=== PATIENT | female | born 1985 | race Caucasian/White ===

== ENCOUNTER 2016-12-19 13:25 | Emergency (ER) | payer SELFPAY ==
[2016-12-19 13:34] VITALS: TEMP 98.4
[2016-12-19] MEDS ORDERED: FAMOTIDINE 20 MG/2 ML SDV ONE (13:35)
[2016-12-19] MEDS ORDERED: methylPREDNISolone SOD SUCC 125 MG/2 ML VIAL ONE (13:35)
[2016-12-19] MEDS ORDERED: NS 1,000 ML IV ONE (13:39)
[2016-12-19] MEDS ORDERED: methylPREDNISolone SOD SUCC 125 MG/2 ML VIAL IVP ONE (13:39)
[2016-12-19] MEDS ORDERED: RANITIDINE 50 MG/2 ML VIAL IVP ONE (13:39)
--- NOTE | 2016-12-19 13:40 | EDPHY ---
H & P Time Seen by Provider: 12/19/16 13:33 HPI/ROS: CHIEF COMPLAINT: Allergic reaction. HISTORY OF PRESENT ILLNESS: The patient is a 31 year old female with a known nut allergy, presenting with a possible allergic reaction. The patient ate a donut 1 hour ago. About 30 minutes ago she developed chest tightness, itchy throat, and stomach cramping. She has had allergic reactions in the past and states epinephrine does not improve her symptoms, it makes her feel shaky but does not improve the reaction. The patient has a history of endometriosis and states her abdominal pain feels different. She denies vomiting or diarrhea. REVIEW OF SYSTEMS: A comprehensive 10 point review of systems is otherwise negative aside from elements mentioned in the history of present illness. Past Medical/Surgical History: Endometriosis, Chronic pain, [place] Saleem. Social History: Single. Lives in [place]. Smoking Status: Never smoked Physical Exam: General Appearance: Very anxious, tachypneic Eyes: Pupils equal and round, no periorbital swelling ENT, Mouth: Mucous membranes moist, no oral swelling Neck: Normal inspection, no stridor Respiratory: Lungs are clear to auscultation, no wheezing Cardiovascular: Regular tachycardia Gastrointestinal: Abdomen is diffusely tender, unable to obtain a good abdominal exam Neurological: A&O, nonfocal, normal gait Skin: Generalized hives Extremities: No swelling Psychiatric: Mood and affect normal Constitutional: Initial Vital Signs Temperature (C) 36.9 C 12/19/16 13:32 Heart Rate 101 H 12/19/16 13:32 Respiratory Rate 22 H 12/19/16 13:32 Blood Pressure 122/90 H 12/19/16 13:32 O2 Sat (%) 95 12/19/16 13:32 O2 Delivery Mode Room Air Allergies/Adverse Reactions: morphine Allergy (Intermediate, Verified 04/28/16 18:30) Other-Enter Comments ALL NUTS Allergy (Severe, Uncoded 04/28/16 18:30) Anaphylaxis Home Medications: Medication Instructions Recorded epINEPHrine 12/19/16 predniSONE 40 mg PO DAILY #4 tab 12/19/16 Medical Decision Making ED Course/Re-evaluation: I examined the patient. Due to chest tightness and itchy throat patient received 0.3mg Epinephrine IM. IV was established, the patient received 50mg Benadryl, 125mg Prednisone, 50mg Zantac, and 1L normal saline. 1400: The patient continues to complain of abdominal pain. She is tachypneic and tachycardic. 1mg Ativan was ordered. 1410: I reevaluated the patient after she received 1mg Ativan. She continues to complain of abdominal cramping. Plan for another 1mg Ativan. 1430: I reevaluated the patient. She continues to have abdominal pain and chest tightness. She complains of difficulty breathing. On repeat exam, patient is tachycardic. Lungs are clear, O2 saturation is 100. Plan to try DuoNeb. 1510: I reevaluated the patient after she received DuoNeb. She is calm. She continues to complain of abdominal cramping. I will give her 30mg IV Toradol. 1555: I reevaluated the patient. She is feeling better, continues to have some abdominal cramping.Abd exam is benign. Plan to discharge home. Clear fluids for 24 hours. Abd pain precautions given. Return if worse. Differential Diagnosis: Differential diagnosis includes though it is not limited to laryngeal edema, bronchospasm, hypotension, angioedema. - Data Points Medications Given: Discontinued Medications Albuterol/Ipratropium (Duoneb) 3 ml IH EDNOW ONE Stop: 12/19/16 14:39 Last Admin: 12/19/16 14:49 Dose: 3 ml Albuterol/Ipratropium (Duoneb) 3 ml IH EDNOW ONE Stop: 12/19/16 14:43 Last Admin: 12/19/16 14:45 Dose: Not Given Diphenhydramine HCl (Benadryl Injection) 50 mg IVP EDNOW ONE Stop: 12/19/16 13:40 Last Admin: 12/19/16 14:00 Dose: 50 mg Epinephrine HCl (Epinephrine) 0.3 mg IM EDNOW ONE Stop: 12/19/16 13:40 Last Admin: 12/19/16 14:00 Dose: 0.3 mg Sodium Chloride (Ns) 1,000 mls @ 0 mls/hr IV ONCE ONE PRN Reason: Wide Open Stop: 12/19/16 13:40 Last Admin: 12/19/16 14:00 Dose: 1,000 mls Ketorolac Tromethamine (Toradol) 30 mg IVP EDNOW ONE Stop: 03/22/17 15:11 Last Admin: 12/19/16 15:18 Dose: 30 mg Lorazepam (Ativan Injection) 1 mg IVP EDNOW ONE Stop: 12/19/16 14:34 Last Admin: 12/19/16 14:00 Dose: 1 mg Lorazepam (Ativan Injection) 1 mg IVP EDNOW ONE Stop: 12/19/16 14:34 Last Admin: 12/19/16 14:25 Dose: 1 mg Methylprednisolone Sodium Succinate (Solu-Medrol) 125 mg IVP EDNOW ONE Stop: 12/19/16 13:40 Last Admin: 12/19/16 14:00 Dose: 125 mg Ranitidine HCl (Zantac) 50 mg IVP EDNOW ONE Stop: 12/19/16 13:40 Last Admin: 12/19/16 14:00 Dose: 20 mg Departure - Departure Disposition: Home, Routine, Self-Care Clinical Impression: Anxiety Allergic reaction Qualifiers: Encounter type: initial encounter Qualified Code(s): T78.40XA - Allergy, unspecified, initial encounter Condition: Good Instructions: Anxiety (ED), General Allergic Reaction (ED) Additional Instructions: Clear liquids for the next 24 hours. Gradual diet advancement as tolerated. Take Benadryl 3 times a day for the next 2 days. Take Prednisone as prescribed. Followup with your primary care physician as needed. Referrals: ILEANA WYATT [Primary Care Provider] - As per Instructions Prescriptions: predniSONE 40 mg PO DAILY #4 tab Report Scribed for: Loretta Garcia Report Scribed by: Ana Murdock Date of Report: 12/19/16 Time of Report: 13:41 Physician Review and Approval Statement: 12/19/16 13:41 Portions of this note were transcribed by a medical insurance claims specialist. I personally performed the history, physical exam, and medical decision-making; and confirmed the accuracy of the information in the transcribed note.
[2016-12-19] MEDS ORDERED: LORazepam 2 MG/ML INJ ONE ×2 (13:50→14:12)
[2016-12-19] MEDS ORDERED: LORazepam 2 MG/ML INJ IVP ONE ×2 (14:33)
[2016-12-19] MEDS ORDERED: IPRATROPIUM/ALBUTEROL 3 ML DEYVIAL IH ONE ×2 (14:38→14:42)
[2016-12-19 14:51] VITALS: RESP 18
[2016-12-19] MEDS ORDERED: KETOROLAC 30 MG/1 ML SDV IVP ONE (15:10)
[2016-12-19 16:35] VITALS: BP 122/64; PULSE 110; O2SAT 98
== END 2016-12-19 16:32 | disposition home or self-care (01) ==
DX: T78.40XA Allergy, unspecified, initial encounter (principal); F41.9 Anxiety disorder, unspecified
CPT/HCPCS: 96374; J0171; J1200; J1885; J2060

== ENCOUNTER 2017-01-02 09:46 | Emergency (ER) | payer OTHER ==
[2017-01-02 09:56] VITALS: TEMP 97.9
--- NOTE | 2017-01-02 10:07 | CPEKG ---
Heart Rate: 96 RR Interval: 625 P-R Interval: 132 QRSD Interval: 80 QT Interval: 340 QTC Interval: 430 P [place]: 79 QRS [place]: 82 T Wave [place]: 20 EKG Severity - NORMAL ECG - EKG Impression: SINUS RHYTHM Electronically Signed By: Parveen Alfredo 02-Jan-2017 11:01:25
[2017-01-02 10:23] LABS: % IMMATURE GRANULYOCYTES 0.4 % (0.0-1.1); ABSOLUTE IMMATURE GRANULOCYTES 0.02 10^3/uL (0.00-0.10); ADD DIFF? NO; ADD MORPH? NO; ADD SCAN? NO; ATYPICAL LYMPHOCYTE FLAG 20 (0-99); FRAGMENT RBC FLAG 0 (0-99); HEMATOCRIT 40.4 % (38.0-47.0); HEMOGLOBIN 14.1 g/dL (12.6-16.3); LEFT SHIFT FLG 0 (0-99); LIPEMIA HEMOLYSIS FLAG 90 (0-99); MEAN CELL HEMOGLOBIN 30.6 pg (27.9-34.1); MEAN CELL HEMOGLOBIN CONCENTR. 34.9 g/dL (32.4-36.7); MEAN CELL VOLUME 87.6 fL (81.5-99.8); MEAN PLATELET VOLUME 9.1 fL (8.7-11.7); PLATELET CLUMPS FLAG 0 (0-99); PLATELET COUNT 189 10^3/uL (150-400); RED BLOOD CELL COUNT 4.61 10^6/uL (4.18-5.33)
[2017-01-02] MEDS ORDERED: LORazepam 2 MG/ML INJ IVP ONE (10:26)
[2017-01-02] MEDS ORDERED: KETOROLAC 30 MG/1 ML SDV IVP ONE (10:26)
--- NOTE | 2017-01-02 10:30 | EDPHY ---
H & P Smoking Status: Never smoked Time Seen by Provider: 01/02/17 09:58 HPI/ROS: CHIEF COMPLAINT: Left-sided chest pain HISTORY OF PRESENT ILLNESS: 31-year-old female presents to the emergency department by private vehicle complaining of severe pain in left side of her chest that began at 845 this morning. The patient states that was warmth abrupt in onset. Denies any known trauma or injury. She does not feel short of breath however when she takes a big breath she does have pain. She denies neck pain. Denies abdominal pain. She has had a hysterectomy in the past and denies . She denies calf pain or swelling. She does feel tingling in her left lower leg. She has never had this pain in the past. No treatment at home. REVIEW OF SYSTEMS: Constitutional: No fever, no chills. Eyes: No double or blurry vision. ENT: No sore throat. Respiratory: No cough, no shortness of breath. Cardiac: Left-sided chest pain as above Gastrointestinal: No abdominal pain, vomiting or diarrhea. Genitourinary: No dysuria. Musculoskeletal: No neck or back pain. Skin: No rashes. Neurological: No headache. (Gwen Wong) Past Medical/Surgical History: Endometriosis, partial hysterectomy (Marvin,Gwen M) Social History: Single and lives in [place] (Marvin,Gwen M) Physical Exam: General Appearance: Alert. 98% on room air, very anxious, tearful, blood pressure 113/79, heart rate 92 Eyes: Pupils equal and round. Extraocular motions are all intact. ENT: Mouth: Mucous membranes moist. Respiratory: No wheezing, rhonchi, or rales, lungs are clear to auscultation. The patient has reproducible pain with palpation to the left anterior aspect of her chest just above the left breast. No palpable crepitus or other bony abnormality. Cardiovascular: Regular rate and rhythm. Gastrointestinal: Abdomen is soft and nontender, no masses, no rebound or guarding, bowel sounds normal. Neurological: Alert and oriented x 3, cranial nerves II through XII grossly intact Skin: Warm and dry, no rashes. Musculoskeletal: Nontender to palpate along the cervical, thoracic or lumbar spine. Neck is supple. Extremities: Full range of motion and no peripheral edema. Psychiatric: Patient is oriented X 3, there is no agitation. (Gwen Wong) Constitutional: Initial Vital Signs Temperature (C) 36.6 C 01/02/17 09:52 Heart Rate 92 01/02/17 09:52 Respiratory Rate 28 H 01/02/17 09:52 Blood Pressure 113/79 01/02/17 09:52 O2 Sat (%) 98 01/02/17 09:52 O2 Delivery Mode Room Air Allergies/Adverse Reactions: morphine Allergy (Intermediate, Verified 01/02/17 09:51) Other-Enter Comments ALL NUTS Allergy (Severe, Uncoded 04/28/16 18:30) Anaphylaxis Home Medications: Medication Instructions Recorded Hydrocodone/APAP 5/325 [[place] 1 each PO Q4-6PRN PRN #11 tab 01/02/17 5/325 (*)] Prozac 10 MG (*) 01/02/17 Medical Decision Making - Diagnostics Imaging: Imaging Impressions Chest X-Ray 01/02/17 10:26 Impression: No acute pulmonary disease. Imaging Impressions Chest X-Ray 01/02/17 10:26 Impression: No acute pulmonary disease. Chest x-ray was reviewed by myself and revealed no acute pulmonary disease. This is reviewed by myself the PAC system as well as by the radiologist. (Gwen Wong) ED Course/Re-evaluation: Patient has reproducible pain with palpation to the left anterior aspect of the chest. No palpable crepitus or other abnormality noted. The patient will be given Toradol 30 mg IV and was also given 0.5 mg of IV Ativan since she is extremely anxious and tearful. D-dimer has been ordered. I doubt pulmonary embolism. Again she has reproducible pain with palpation. Laboratory studies are pending. EKG is within normal limits. Patient required IV Dilaudid for pain as well. The patient felt comfortable being discharged home. I did discuss the pros and cons of CT imaging of her chest including radiation exposure and the patient agrees with not obtain CT scan. The patient feels comfortable being discharged home. She will be discharged home with Ros[place]. She was encouraged to continue ibuprofen for pain. Also encouraged to return if she feels short of breath, if she develops a fever, increasing pain or any other concerns. (Gwen Wong) Differential Diagnosis: Chest pain including but not limited to myocardial ischemia, pulmonary embolus, chest wall pain, pleural inflammation and pulmonary infectious causes. (Gwen Wong) - Data Points Laboratory Results: Laboratory Results 01/02/17 10:10 01/02/17 10:10 01/02/17 01/02/17 01/02/17 10:10 10:10 10:10 WBC RBC Hgb Hct MCV MCH MCHC RDW Plt Count MPV Neut % (Auto) Lymph % (Auto) [place] % (Auto) Eos % (Auto) Baso % (Auto) Nucleat RBC Rel Count Absolute Neuts (auto) Absolute Lymphs (auto) Absolute Monos (auto) Absolute Eos (auto) Absolute Basos (auto) Absolute Nucleated RBC Immature Gran % Immature Gran # D-Dimer 0.33 ug/mLFEU ug/mLFEU (0.00-0.50) Sodium 141 mEq/L mEq/L (134-144) Potassium 3.8 mEq/L mEq/L (3.5-5.2) Chloride 107 mEq/L mEq/L (97-110) Carbon Dioxide 21 mEq/l L mEq/l (22-31) Anion Gap 13 mEq/L mEq/L (8-16) BUN 11 mg/dL mg/dL (7-23) Creatinine 0.8 mg/dL mg/dL (0.6-1.0) Estimated GFR > 60 Glucose 89 mg/dL mg/dL (70-100) Calcium 9.4 mg/dL mg/dL (8.5-10.4) Beta HCG, Qual NEGATIVE 01/02/17 10:10 WBC 5.18 10^3/uL 10^3/uL (3.80-9.50) RBC 4.61 10^6/uL 10^6/uL (4.18-5.33) Hgb 14.1 g/dL g/dL (12.6-16.3) Hct 40.4 % % (38.0-47.0) MCV 87.6 fL fL (81.5-99.8) MCH 30.6 pg pg (27.9-34.1) MCHC 34.9 g/dL g/dL (32.4-36.7) RDW 12.0 % % (11.5-15.2) Plt Count 189 10^3/uL 10^3/uL (150-400) MPV 9.1 fL fL (8.7-11.7) Neut % (Auto) 69.7 % % (39.3-74.2) Lymph % (Auto) 21.0 % % (15.0-45.0) [place] % (Auto) 7.3 % % (4.5-13.0) Eos % (Auto) 1.0 % % (0.6-7.6) Baso % (Auto) 0.6 % % (0.3-1.7) Nucleat RBC Rel Count 0.0 % % (0.0-0.2) Absolute Neuts (auto) 3.61 10^3/uL 10^3/uL (1.70-6.50) Absolute Lymphs (auto) 1.09 10^3/uL 10^3/uL (1.00-3.00) Absolute Monos (auto) 0.38 10^3/uL 10^3/uL (0.30-0.80) Absolute Eos (auto) 0.05 10^3/uL 10^3/uL (0.03-0.40) Absolute Basos (auto) 0.03 10^3/uL 10^3/uL (0.02-0.10) Absolute Nucleated RBC 0.00 10^3/uL 10^3/uL (0-0.01) Immature Gran % 0.4 % % (0.0-1.1) Immature Gran # 0.02 10^3/uL 10^3/uL (0.00-0.10) D-Dimer Sodium Potassium Chloride Carbon Dioxide Anion Gap BUN Creatinine Estimated GFR Glucose Calcium Beta HCG, Qual Medications Given: Discontinued Medications Hydromorphone HCl (Dilaudid) 0.5 mg IVP EDNOW ONE Stop: 01/02/17 12:31 Last Admin: 01/02/17 12:52 Dose: 0.5 mg Hydromorphone HCl (Dilaudid) 0.5 mg IVP EDNOW ONE Stop: 01/02/17 13:13 Last Admin: 01/02/17 13:00 Dose: 0.5 mg Sodium Chloride (Ns) 1,000 mls @ 0 mls/hr IV ONCE ONE PRN Reason: Wide Open Stop: 01/02/17 12:54 Last Admin: 01/02/17 12:53 Dose: 1,000 mls Ketorolac Tromethamine (Toradol) 30 mg IVP EDNOW ONE Stop: 01/02/17 10:27 Last Admin: 01/02/17 10:44 Dose: 30 mg Lorazepam (Ativan Injection) 0.5 mg IVP EDNOW ONE Stop: 01/02/17 10:27 Last Admin: 01/02/17 10:45 Dose: 0.5 mg Departure - Departure Disposition: Home, Routine, Self-Care Clinical Impression: Chest wall pain Condition: Good Instructions: Chest Wall Pain (ED) Additional Instructions: Ibuprofen 400-600mg every 8 hours for pain as directed. Hydrocodone for severe pain as directed. Return if you feel shortness of breath, fever, increasing pain, or if you feel worse in any way. Referrals: ILEANA WYATT [Primary Care Provider] - 2-3 days without fail Prescriptions: Hydrocodone/APAP 5/325 [[place] 5/325 (*)] 1 each PO Q4-6PRN PRN #11 tab PRN Reason: Pain, Severe
[2017-01-02 10:48] LABS: ANION GAP 13 mEq/L (8-16); CALCIUM 9.4 mg/dL (8.5-10.4); CARBON DIOXIDE 21 mEq/l (22-31); CHLORIDE 107 mEq/L (97-110); CREATININE 0.8 mg/dL (0.6-1.0); GLOMERULAR FILTRATION RATE > 60; GLUCOSE 89 mg/dL (70-100); POTASSIUM 3.8 mEq/L (3.5-5.2); SODIUM 141 mEq/L (134-144)
[2017-01-02] MEDS ORDERED: HYDROmorphONE/DILAUDID 1 MG/ML SYR IVP ONE ×2 (12:30→13:12)
[2017-01-02] MEDS ORDERED: NS 1,000 ML IV ONE (12:53)
[2017-01-02 14:16] VITALS: BP 112/72; PULSE 88; RESP 16; O2SAT 96
== END 2017-01-02 14:15 | disposition home or self-care (01) ==
DX: R07.89 Other chest pain (principal)
CPT/HCPCS: 96374; J1170; J1885; J2060

== ENCOUNTER 2017-01-12 16:42 | Emergency (ER) | payer OTHER ==
--- NOTE | 2017-01-12 17:07 | CPEKG ---
Heart Rate: 84 RR Interval: 714 P-R Interval: 148 QRSD Interval: 78 QT Interval: 360 QTC Interval: 426 P [place]: 70 QRS [place]: 76 T Wave [place]: 18 EKG Severity - NORMAL ECG - EKG Impression: SINUS RHYTHM Electronically Signed By: Alberto Pitt 12-Jan-2017 17:19:02
[2017-01-12 17:08] LABS: % IMMATURE GRANULYOCYTES 0.2 % (0.0-1.1); ABSOLUTE IMMATURE GRANULOCYTES 0.01 10^3/uL (0.00-0.10); ADD DIFF? NO; ADD MORPH? NO; ADD SCAN? NO; ATYPICAL LYMPHOCYTE FLAG 30 (0-99); FRAGMENT RBC FLAG 0 (0-99); HEMATOCRIT 40.4 % (38.0-47.0); HEMOGLOBIN 13.9 g/dL (12.6-16.3); LEFT SHIFT FLG 0 (0-99); LIPEMIA HEMOLYSIS FLAG 90 (0-99); MEAN CELL HEMOGLOBIN 30.3 pg (27.9-34.1); MEAN CELL HEMOGLOBIN CONCENTR. 34.4 g/dL (32.4-36.7); MEAN CELL VOLUME 88.2 fL (81.5-99.8); MEAN PLATELET VOLUME 9.2 fL (8.7-11.7); PLATELET CLUMPS FLAG 20 (0-99); PLATELET COUNT 222 10^3/uL (150-400); RED BLOOD CELL COUNT 4.58 10^6/uL (4.18-5.33); RED CELL DISTRIBUTION WIDTH 11.9 % (11.5-15.2)
[2017-01-12 17:15] LABS: ANION GAP 8 mEq/L (8-16); CALCIUM 9.4 mg/dL (8.5-10.4); CARBON DIOXIDE 24 mEq/l (22-31); CHLORIDE 107 mEq/L (97-110); CREATININE 0.7 mg/dL (0.6-1.0); ETHANOL SERUM < 10 mg/dL (0-10); GLOMERULAR FILTRATION RATE > 60; GLUCOSE 95 mg/dL (70-100); POTASSIUM 3.9 mEq/L (3.5-5.2); SALICYLATE < 1.0 mg/dL (2.0-20.0); SODIUM 139 mEq/L (134-144)
--- NOTE | 2017-01-12 17:16 | EDPHY ---
H & P Smoking Status: Never smoked Time Seen by Provider: 01/12/17 16:50 HPI/ROS: CHIEF COMPLAINT: Anxiety, suicidal, Ativan overdose HISTORY OF PRESENT ILLNESS: 31-year-old woman has a history of anxiety and depression. She has been having worsening anxiety and increasing suicidal thoughts over the past couple of weeks. Today she was at work and had a severe anxiety attack. Usually she can be calmed down by her boyfriend but he was not returning her phone calls and she left work and took a total of 20 mg of Xanax starting around 4:00 p.m.. She asked a friend to bring her to the ER because she was feeling severe anxiety and suicidal. She says her plan is to overdose. REVIEW OF SYSTEMS: Eye: no change in vision ENT: no sore throat Cardiac: no chest pain or syncope Pulmonary: no cough or SOB Abdomen: no vomiting, diarrhea, abdominal pain Musculoskeletal: no back pain Skin: no rash Neuro: no headache Constitutional: no fever : no urinary symptoms A comprehensive 10 point review of systems is otherwise negative aside from elements mentioned in the history of present illness. PAST MEDICAL HISTORY: Hysterectomy for endometriosis, anxiety and depression. Social history: Denies alcohol or drugs today General Appearance: Alert and conversant, cooperative. Eyes: No scleral icterus. ENT, Mouth: Normal mucous membranes. Respiratory: Normal respiratory effort, breath sounds equal, lungs are clear to auscultation. Cardiovascular: Regular rate and rhythm. Gastrointestinal: Abdomen is soft and non tender. Neurological: Alert and oriented x3. Normally conversant. Face symmetric, normal movement and sensation in all extremities. Skin: No laceration or cuts. Musculoskeletal: No peripheral edema and no joint swelling. Psychiatric: Tearful, admits to suicidal ideation, not homicidal, not hallucinating. Emergency Department course/MDM: patient placed on a mental health hold by myself for severe anxiety and suicidal thoughts. On arrival appears gravely disabled and danger to self. The patient had a medical screening evaluation performed. There does not appear to be an acute emergent medical or surgical condition which would preclude psychiatric evaluation at this time. Mental health evaluation is requested. 2121: Patient is still alert and normally conversant. I do not think she is at high risk of significant morbidity from her Xanax ingestion at this time. Mental health evaluation is in progress. Signed out to Dr. Rocha at this time with psychiatric evaluation in progress. (Alberto Pitt) Constitutional: Initial Vital Signs Temperature (C) 36.4 C 01/12/17 16:45 Heart Rate 112 H 01/12/17 16:45 Respiratory Rate 18 01/12/17 16:45 Blood Pressure 112/85 H 01/12/17 16:45 O2 Sat (%) 93 01/12/17 16:45 O2 Delivery Mode Room Air Allergies/Adverse Reactions: morphine Allergy (Intermediate, Verified 01/12/17 16:50) Other-Enter Comments ALL NUTS Allergy (Severe, Uncoded 04/28/16 18:30) Anaphylaxis Home Medications: Medication Instructions Recorded Prozac 10 MG (*) 01/02/17 ALPRAZolam [Xanax 0.5 MG (*)] 0.5 mg PO TID 01/12/17 Medical Decision Making - Diagnostics EKG Interpretation: 12-lead EKG interpreted by me; official reading is in trace master. My interpretation is sinus rhythm at rate of 84. Normal intervals. (Alberto Pitt) Differential Diagnosis: Differential diagnosis considered for depression including functional and major depression, situational depression, medication side effect, drugs and alcohol abuse. (Alberto Pitt) [id number]: Patient signed over to Dr. Paulino at 7:00 a.m. shift change. Patient here bipolar, depression, on M1 hold benzodiazepine overdose. During her stay this evening she did require 10 mg IM Haldol for acute agitation. She has been sleeping resting comfortably. Otherwise no acute events. pending placement (Nikolay Rocha) Patient has been evaluated and accepted at [facility] [place]. Paperwork is filled out. Patient remained stable (Brad Paulino) - Data Points Laboratory Results: Laboratory Results 01/12/17 17:00 01/12/17 17:00 Medications Given: Discontinued Medications Diphenhydramine HCl (Benadryl) 25 mg PO EDNOW ONE Stop: 01/13/17 01:25 Last Admin: 01/13/17 01:31 Dose: 25 mg Haloperidol Lactate (Haldol Injection) 5 mg IM EDNOW ONE Stop: 01/13/17 01:35 Last Admin: 01/13/17 01:40 Dose: 5 mg Haloperidol Lactate (Haldol Injection) 5 mg IVP EDNOW ONE Stop: 01/13/17 02:00 Last Admin: 01/13/17 01:55 Dose: 5 mg Midazolam HCl (Versed) 2 mg IM ONCE ONE Stop: 01/13/17 02:00 Last Admin: 01/13/17 06:44 Dose: Not Given Ondansetron HCl (Zofran) 4 mg IVP EDNOW ONE Stop: 01/12/17 18:00 Last Admin: 01/12/17 18:03 Dose: 4 mg Departure - Departure Disposition: Other Psych, Not Nancy Clinical Impression: Severe major depression, xanax overdose Condition: Good Referrals: ILEANA WYATT [Primary Care Provider] - As per Instructions
[2017-01-12] MEDS ORDERED: ONDANSETRON 4 MG/2 ML VIAL IVP ONE (17:59)
[2017-01-12] MEDS ORDERED: AMMONIA AROMATIC 1 EACH AMP IH ONE (22:03)
[2017-01-13] MEDS ORDERED: diphenhydrAMINE 25 MG CAP PO ONE ×2 (01:20→01:24)
[2017-01-13] MEDS ORDERED: HALOPERIDOL LACT 5 MG/ML INJ IM ONE (01:34)
[2017-01-13] MEDS ORDERED: MIDAZOLAM 2 MG/2 ML VIAL ONE (01:55)
[2017-01-13] MEDS ORDERED: HALOPERIDOL LACT 5 MG/ML INJ ONE (01:56)
[2017-01-13] MEDS ORDERED: HALOPERIDOL LACT 5 MG/ML INJ IVP ONE (01:59)
[2017-01-13] MEDS: MIDAZOLAM 2 MG/2 ML VIAL IM ONE ×2 (02:02→06:44)
[2017-01-13 08:49] VITALS: RESP 16
[2017-01-13] MEDS ORDERED: LORazepam 1 MG TAB PO ONE (12:28)
[2017-01-13 15:41] VITALS: BP 94/63; PULSE 86; TEMP 98.1; O2SAT 97
== END 2017-01-13 17:01 ==
DX: T42.4X2A Poisoning by benzodiazepines, intentional self-harm, initial encounter (principal); F32.2 Major depressive disorder, single episode, severe without psychotic features
CPT/HCPCS: 80305; 96374; G0480; J2250; J2405

== ENCOUNTER 2017-03-31 11:15 | Emergency (ER) | payer OTHER ==
[2017-03-31] MEDS ORDERED: ONDANSETRON 4 MG/2 ML VIAL ONE (11:20)
--- NOTE | 2017-03-31 11:20 | EDPHY ---
HPI/HX/ROS/PE/MDM Narrative: CHIEF COMPLAINT: Tongue swelling, difficulty breathing HPI: This patient is a 31-year-old female with a known nut allergy presents to the Emergency Department emergently via EMS with complaint of tongue swelling and difficulty breathing. Per EMS, she first noticed tongue swelling approximately five minutes after eating breakfast today; it is unknown if there were nuts in the food that she ate this morning. During transport, she appeared somnolent with brief O2 desaturation at 80% on RA before returning to baseline of 94%. Upon arrival, she continues to complain of tongue swelling and also reports nausea and vision changes. She states that her vision is blurry with dark spots but is unable to expand on this. She denies rash. Medical history also includes anxiety. REVIEW OF SYSTEMS: Aside from elements discussed in the HPI, a comprehensive 10-point review of systems was reviewed and is negative. PMH: 1. Known nut allergy 2. Endometriosis with hysterectomy 3. Anxiety and depression SOCIAL HISTORY: Lives in [place] with roommates. PHYSICAL EXAM: General:Patient is somnolent, appears uncomfortable, retching, refusing to sit up. ENT:Eyes are normal to inspection. ENT inspection normal. There is no tongue swelling or angioedema. Neck: Normal inspection. Full range of motion. Respiratory:Bilateral wheezing with diminished airway flow. Cardiovascular: Regular rate and rhythm. Strong peripheral pulses. Normal cap refill. Abdomen:The abdomen is nontender to palpation. There are no peritoneal signs. There are normal bowel sounds. Back: Normal to inspection. No tenderness to palpation. Skin: Normal color. No hives. Warm and dry. Extremities: Normal appearance. Full range of motion. Neuro: Oriented x3. Normal motor function. Normal sensory function. ED Course: 1115: Took EMS report at bedside. Medications administered in transport: IV Benadryl, IV Solu-Medrol, IH 3ml DuoNeb, IM epinephrine. Sinus tachycardia on monitor at 130. O2 sat range from 80% to 94% throughout transport. 1117: IV established. Labs and EKG ordered. Initial vitals obtained: Tachycardic at 133. O2 sat 98% on RA. BP 78/48. Breathing 16 times per minute. Lying down, refuses to sit up. I examined the patient at time of arrival. The patient's presentation is not suggestive of anaphylaxis given lack of urticaria and no apparent angioedema. She is not tachypneic or hypoxemic. Though she states that her tongue is swollen and reports a subjective sensation of difficulty breathing, she is lying flat and refuses to sit up. I do not feel that she requires additional treatment apart from fluids and continued observation at this time. I am most suspicious of vocal cord dysfunction. 1120: Respiratory therapist at bedside 1121: [employer]-State obtained. 1123: Prior medical records reviewed. Patient was seen here in December for overdose and in November for acute allergic reaction which presented at that time with abdominal cramping and difficulty breathing. Previous allergic reactions were not responsive to epinephrine. 1125: Repeat BP obtained at 98/59. 1135: Almost immediately after I left room, patient was noted to have an episode of violent rhythmic shaking of arms and legs. However, she remained conscious throughout this episode and was able to turn her head and talk to me. She was also able to raise her left arm despite shaking. This seems inconsistent with a true generalized seizure. 2L IV NS, 1mg IV Ativan, and 4mg IV Zofran administered. 1230: Patient again shows violent rhythmic shaking of arms and legs. This again seems inconsistent with a true seizure. However, given this repeated behavior as well as complaints of vision changes, will proceed with CT of the head. 1346: At time of reevaluation, the patient is sitting up and resting comfortably. She is speaking appropriately. She now complains of bilateral lower extremity myalgias but has no additional concerns. I discussed with the patient the possibility that she experienced vocal cord dysfunction causing her subjective sensation of throat swelling and difficulty swallowing this morning. She will be given a referral to the on-call ENT specialist as well as customary return precautions prior to discharge. 1419: The patient's father is now at bedside. Apparently, roommates report that the patient will act like this often. They are stating that this is a liability for them and are concerned about her returning home. Dad is also unwilling for her to return home. This provides further insight into the lack of objective findings throughout the patient's visit today. MDM: This was an unusual patient encounter. The patient arrived with story of severe anaphylaxis and syncope, but on exam had no objective signs of allergic reaction whatsoever. No rash was present, and the patient had no airway swelling , hypoxia or tachypena despite subjective complaint of dyspnea. She complained of difficulty swallowing but was comfortable lying flat and refused the option of sitting up. I think some of her initial tachycardia is certainly attributable to the double dose of epinephrine she received in route. The patient received no further anaphylaxis treatment in the ED. After initial evaluation, patient then developed diffuse tonic-clonic activity but as noted above, she remained conscious and had motor control during these episodes, so I do not think these represent true seizure activity. A review of the patient's prior chart indicates a history of possible syncopal events that was felt to be due to malingering. On re-evaluation, patient is quite comfortable, and has received only ativan and IV fluids here in the ED. A CT scan was performed of her brain and neck, and these are negative. Specifically there is no evidence of airway swelling or other neck abnormality. The etiology of the patient's presentation is unknown, but given negative workup and resolution of symptoms, I suspect this likely represents some sort of somatization disorder or possible vocal cord dysfunction. I think the patient would benefit from ENT consultation and have referred her to one. I discussed strict return precautions with patient and her roomates. - Data Points Imaging Results: Imaging Impressions Chest X-Ray 03/31/17 11:32 Impression: Clear lungs. Negative portable chest. Imaging: Discussed imaging studies w/ call specialist Radiologist (negative) Laboratory Results: Laboratory Results 03/31/17 11:30 03/31/17 11:30 03/31/17 03/31/17 03/31/17 11:30 11:30 11:30 WBC 5.98 10^3/uL 10^3/uL (3.80-9.50) RBC 5.01 10^6/uL 10^6/uL (4.18-5.33) Hgb 15.2 g/dL g/dL (12.6-16.3) POC Hgb Hct 44.9 % % (38.0-47.0) POC Hct MCV 89.6 fL fL (81.5-99.8) MCH 30.3 pg pg (27.9-34.1) MCHC 33.9 g/dL g/dL (32.4-36.7) RDW 12.5 % % (11.5-15.2) Plt Count 268 10^3/uL 10^3/uL (150-400) MPV 9.1 fL fL (8.7-11.7) Neut % (Auto) 43.1 % % (39.3-74.2) Lymph % (Auto) 50.8 % H % (15.0-45.0) [place] % (Auto) 5.4 % % (4.5-13.0) Eos % (Auto) 0.2 % L % (0.6-7.6) Baso % (Auto) 0.2 % L % (0.3-1.7) Nucleat RBC Rel Count 0.0 % % (0.0-0.2) Absolute Neuts (auto) 2.58 10^3/uL 10^3/uL (1.70-6.50) Absolute Lymphs (auto) 3.04 10^3/uL H 10^3/uL (1.00-3.00) Absolute Monos (auto) 0.32 10^3/uL 10^3/uL (0.30-0.80) Absolute Eos (auto) 0.01 10^3/uL L 10^3/uL (0.03-0.40) Absolute Basos (auto) 0.01 10^3/uL L 10^3/uL (0.02-0.10) Absolute Nucleated RBC 0.00 10^3/uL 10^3/uL (0-0.01) Immature Gran % 0.3 % % (0.0-1.1) Immature Gran # 0.02 10^3/uL 10^3/uL (0.00-0.10) POC Sodium Sodium 141 mEq/L mEq/L (134-144) POC Potassium Potassium 3.5 mEq/L mEq/L (3.5-5.2) POC Chloride Chloride 108 mEq/L mEq/L (97-110) Carbon Dioxide 14 mEq/l L mEq/l (22-31) Anion Gap 19 mEq/L H mEq/L (8-16) POC BUN BUN 14 mg/dL mg/dL (7-23) Creatinine 0.9 mg/dL mg/dL (0.6-1.0) POC Creatinine Estimated GFR > 60 Glucose 181 mg/dL H mg/dL (70-100) POC Glucose Calcium 9.2 mg/dL mg/dL (8.5-10.4) Beta HCG, Qual NEGATIVE 03/31/17 11:21 WBC RBC Hgb POC Hgb 14.6 gm/dL gm/dL (12.6-16.3) Hct POC Hct 43 % % (38-47) MCV MCH MCHC RDW Plt Count MPV Neut % (Auto) Lymph % (Auto) [place] % (Auto) Eos % (Auto) Baso % (Auto) Nucleat RBC Rel Count Absolute Neuts (auto) Absolute Lymphs (auto) Absolute Monos (auto) Absolute Eos (auto) Absolute Basos (auto) Absolute Nucleated RBC Immature Gran % Immature Gran # POC Sodium 141 mEq/L mEq/L (134-144) Sodium POC Potassium 3.1 mEq/L L mEq/L (3.3-5.0) Potassium POC Chloride 105 mEq/L mEq/L (97-110) Chloride Carbon Dioxide Anion Gap POC BUN 13 mg/dL mg/dL (7-23) BUN Creatinine POC Creatinine 1.0 mg/dL mg/dL (0.6-1.0) Estimated GFR Glucose POC Glucose 181 mg/dL H mg/dL (70-100) Calcium Beta HCG, Qual Medications Given: Discontinued Medications Sodium Chloride (Ns) 2,000 mls @ 0 mls/hr IV EDNOW ONE; Wide Open PRN Reason: Protocol Stop: 03/31/17 11:49 Last Admin: 03/31/17 11:15 Dose: 2,000 mls Lorazepam (Ativan Injection) 1 mg IVP EDNOW ONE Stop: 03/31/17 11:38 Last Admin: 03/31/17 11:38 Dose: 1 mg Lorazepam (Ativan Injection) 1 mg IVP EDNOW ONE Stop: 03/31/17 13:01 Last Admin: 03/31/17 13:30 Dose: 1 mg Ondansetron HCl (Zofran) 4 mg IVP EDNOW ONE Stop: 03/31/17 11:32 Last Admin: 03/31/17 11:36 Dose: 4 mg Point of Care Test Results: 03/31/17 11:21 POC Sodium 141 POC Potassium 3.1 L POC Chloride 105 POC BUN 13 POC Creatinine 1.0 POC Glucose 181 H General Initial Vital Signs: Initial Vital Signs Temperature (C) 36.8 C 03/31/17 11:19 Heart Rate 134 H 03/31/17 11:19 Respiratory Rate 19 03/31/17 11:19 Blood Pressure 78/48 L 03/31/17 11:19 O2 Sat (%) 98 03/31/17 11:19 O2 Delivery Mode Room Air Allergies/Adverse Reactions: morphine Allergy (Intermediate, Verified 01/12/17 16:50) Other-Enter Comments ALL NUTS Allergy (Severe, Uncoded 04/28/16 18:30) Anaphylaxis Home Medications: Medication Instructions Recorded Prozac 10 MG (*) 01/02/17 ALPRAZolam [Xanax 0.5 MG (*)] 0.5 mg PO TID 01/12/17 Departure - Departure Disposition: Home, Routine, Self-Care Clinical Impression: Vocal cord dysfunction Condition: Good Instructions: Dyspnea (ED) Additional Instructions: 1. Follow-up with an ENT specialist for further evaluation in the next 5-7 days. We have referred you to our on-call provider, Dr. Grubbs. 2. Return to the Emergency Department with difficulty breathing, trouble speaking, severe anxiety, or for other serious concerns. Referrals: Jenniffer Grubbs MD [Medical Doctor] - As per Instructions Report Scribed for: Tee Kong Report Scribed by: Dipti Aguirre Date of Report: 03/31/17 Time of Report: 11:20 Physician Review and Approval Statement: Portions of this note were transcribed by an ED scribe. I personally performed the history, physical exam, and medical decision making; and confirm the accuracy of the information in the transcribed note.
[2017-03-31] MEDS ORDERED: ONDANSETRON 4 MG/2 ML VIAL IVP ONE (11:31)
[2017-03-31] MEDS ORDERED: LORazepam 2 MG/ML INJ ONE (11:35)
[2017-03-31] MEDS ORDERED: LORazepam 2 MG/ML INJ IVP ONE ×2 (11:37→13:00)
[2017-03-31 11:38] LABS: % IMMATURE GRANULYOCYTES 0.3 % (0.0-1.1); ABSOLUTE IMMATURE GRANULOCYTES 0.02 10^3/uL (0.00-0.10); ADD DIFF? NO; ADD MORPH? NO; ADD SCAN? NO; ATYPICAL LYMPHOCYTE FLAG 30 (0-99); FRAGMENT RBC FLAG 0 (0-99); HEMATOCRIT 44.9 % (38.0-47.0); HEMOGLOBIN 15.2 g/dL (12.6-16.3); LEFT SHIFT FLG 0 (0-99); LIPEMIA HEMOLYSIS FLAG 90 (0-99); MEAN CELL HEMOGLOBIN 30.3 pg (27.9-34.1); MEAN CELL HEMOGLOBIN CONCENTR. 33.9 g/dL (32.4-36.7); MEAN CELL VOLUME 89.6 fL (81.5-99.8); MEAN PLATELET VOLUME 9.1 fL (8.7-11.7); PLATELET CLUMPS FLAG 0 (0-99); PLATELET COUNT 268 10^3/uL (150-400); RED BLOOD CELL COUNT 5.01 10^6/uL (4.18-5.33); RED CELL DISTRIBUTION WIDTH 12.5 % (11.5-15.2)
--- NOTE | 2017-03-31 11:38 | CPEKG ---
Heart Rate: 125 RR Interval: 480 P-R Interval: 108 QRSD Interval: 82 QT Interval: 320 QTC Interval: 462 P [place]: 82 QRS [place]: 94 T Wave [place]: -73 EKG Severity - BORDERLINE ECG - EKG Impression: SINUS TACHYCARDIA EKG Impression: BORDERLINE RIGHT AXIS DEVIATION EKG Impression: HEART RATES ARE 40 BPM FASTER THAN IN PRIOR ECG FROM JAN 14 Electronically Signed By: Lamine Wynn 04-Apr-2017 15:55:00
[2017-03-31] MEDS ORDERED: NS 2,000 ML IV ONE (11:48)
[2017-03-31 11:56] LABS: ANION GAP 19 mEq/L (8-16); CALCIUM 9.2 mg/dL (8.5-10.4); CARBON DIOXIDE 14 mEq/l (22-31); CHLORIDE 108 mEq/L (97-110); CREATININE 0.9 mg/dL (0.6-1.0); GLOMERULAR FILTRATION RATE > 60; GLUCOSE 181 mg/dL (70-100); POTASSIUM 3.5 mEq/L (3.5-5.2); SODIUM 141 mEq/L (134-144)
[2017-03-31 14:21] VITALS: BP 116/68; PULSE 104; RESP 16; TEMP 97.9; O2SAT 95
== END 2017-03-31 14:27 | disposition home or self-care (01) ==
LOC: EDUNIT#
DX: J38.3 Other diseases of vocal cords (principal)
CPT/HCPCS: 82947-QW; 96374; J2060; J2405